=== PATIENT | male | born 1950 | race Hispanic/Latino ===

== ENCOUNTER 2018-05-13 20:08 | Emergency (ER) | payer MEDICARE ==
[2018-05-13 20:21] VITALS: BP 145/54
[2018-05-13] MEDS ORDERED: BANOPHEN PO ONE (20:41)
[2018-05-14] MEDS ORDERED: DELTASONE PO ONE (00:18)
[2018-05-14] MEDS ORDERED: KENALOG TP ONE (00:18)
[2018-05-14] MEDS ORDERED: MOTRIN PO ONE (00:22)
--- NOTE | 2018-05-14 00:22 | Emergency Department Report ---
ED Animal Bite HPI - General Chief Complaint: Animal Bite Stated Complaint: BEE STING Time Seen by Provider: 05/14/18 00:17 Source: patient Mode of arrival: Ambulatory Limitations: No Limitations - History of Present Illness Initial Comments: 67-year-old male comes in with multiple stating and redness area. Patient reports that he was mowing his lawn today and was attacked by yellow jackets. Patient denies any trouble swallowing no trouble breathing no wheezing no chest pain no nausea no vomiting. Patient complains of swelling of his feet that is itchy On his back, placed on his left gluteal, right arm. He reports that he has a history of diabetes., Hypertension, COPD, arthritis, kidney stones and colon surgery. Patient reports that the Benadryl that was given to him in triage has not helped his itchiness. -: This afternoon Left: Leg, Ankle, Foot, Right: Arm, Leg, Ankle, Foot Animal: other (insect/yellow jackets) Pain Description: constant Severity scale (0 -10): 10 Context: provoked Associated Symptoms: erythema. denies: loss of consciousness, shortness of breath - Related Data Home Medications Medication Instructions Recorded Confirmed Last Taken Alendronate Sodium 70 mg PO QWEEK 09/30/13 05/25/14 05/18/14 Gabapentin [Neurontin] 600 mg PO BID 09/30/13 05/25/14 05/24/14 Lisinopril [Zestril TAB] 20 mg PO QDAY 09/30/13 05/25/14 05/24/14 Megestrol [Megace] 40 mg PO DAILY 09/30/13 05/25/14 05/24/14 Omeprazole [PriLOSEC] 40 mg PO DAILY 09/30/13 05/25/14 05/24/14 Tamsulosin [Flomax] 0.4 mg PO DAILY 09/30/13 05/25/14 05/24/14 glipiZIDE [glipiZIDE ER] 5 mg PO QAM 09/30/13 05/25/14 05/24/14 Pentosan (Nf) [Elmiron (Nf)] 100 mg PO BID 05/25/14 05/25/14 05/24/14 Solifenacin Succinate [Vesicare] 5 mg PO DAILY 05/25/14 05/25/14 05/24/14 Previous Rx's Medication Instructions Recorded Last Taken Type Cyclobenzaprine [Flexeril 10 MG 5 mg PO TID PRN #10 tablet 06/29/13 04/20/14 Rx TAB] Hydrocodone Bit/Acetaminophen 1 each PO Q6HR PRN #10 tablet 06/29/13 05/24/14 Rx [Lortab 5-500 Tablet] Ondansetron [Zofran Odt] 4 mg PO Q4-6H PRN #14 tab.rapdis 09/30/13 04/20/14 Rx Pantoprazole [Protonix TAB] 40 mg PO QDAY #10 tablet 09/30/13 05/24/14 Rx Hydroxyzine HCl 25 mg PO Q6H #20 tablet 05/14/18 Unknown Rx Allergies Allergy/AdvReac Type Severity Reaction Status Date / Time acetaminophen [From Percocet] Allergy Itching Verified 05/25/14 07:46 oxycodone HCl [From Percocet] Allergy Itching Verified 05/25/14 07:46 ED Review of Systems ROS: Stated complaint: BEE STING Other details as noted in HPI Comment: All other systems reviewed and negative Constitutional: chills ENT: ear pain Cardiovascular: denies: chest pain, palpitations Endocrine: no symptoms reported Gastrointestinal: denies: abdominal pain, nausea, diarrhea Genitourinary: denies: urgency, dysuria Musculoskeletal: denies: back pain, joint swelling, arthralgia Skin: lesions, change in color, pruritus Psychiatric: anxiety. denies: depression, homicidal thoughts, suicidal thoughts Hematological/Lymphatic: denies: easy bleeding, easy bruising ED Past Medical Hx - Past Medical History Hx Hypertension: Yes Hx Diabetes: Yes Hx GERD: Yes (patient has never had an upper GI endoscopy) Hx Arthritis: Yes Hx Kidney Stones: Yes Hx COPD: Yes - Surgical History Hx Appendectomy: Yes Additional Surgical History: colon surgery - Social History Smoking Status: Current Every Day Smoker Substance Use Type: None - Medications Home Medications: Home Medications Medication Instructions Recorded Confirmed Last Taken Type Cyclobenzaprine [Flexeril 10 MG 5 mg PO TID PRN #10 tablet 06/29/13 05/25/14 Rx TAB] Hydrocodone Bit/Acetaminophen 1 each PO Q6HR PRN #10 tablet 06/29/13 05/25/14 Rx [Lortab 5-500 Tablet] Alendronate Sodium 70 mg PO QWEEK 09/30/13 05/25/14 05/18/14 History Gabapentin [Neurontin] 600 mg PO BID 09/30/13 05/25/14 05/24/14 History Lisinopril [Zestril TAB] 20 mg PO QDAY 09/30/13 05/25/14 05/24/14 History Megestrol [Megace] 40 mg PO DAILY 09/30/13 05/25/14 05/24/14 History Omeprazole [PriLOSEC] 40 mg PO DAILY 09/30/13 05/25/14 05/24/14 History Ondansetron [Zofran Odt] 4 mg PO Q4-6H PRN #14 tab.rapdis 09/30/13 05/25/14 Rx Pantoprazole [Protonix TAB] 40 mg PO QDAY #10 tablet 09/30/13 05/25/14 05/24/14 Rx Tamsulosin [Flomax] 0.4 mg PO DAILY 09/30/13 05/25/14 05/24/14 History glipiZIDE [glipiZIDE ER] 5 mg PO QAM 09/30/13 05/25/14 05/24/14 History Pentosan (Nf) [Elmiron (Nf)] 100 mg PO BID 05/25/14 05/25/14 05/24/14 History Solifenacin Succinate [Vesicare] 5 mg PO DAILY 05/25/14 05/25/14 05/24/14 History Hydroxyzine HCl 25 mg PO Q6H #20 tablet 05/14/18 Unknown Rx ED Physical Exam - General Limitations: No Limitations General appearance: alert, in no apparent distress - Eye Eye exam: Present: EOMI - ENT ENT exam: Present: mucous membranes moist - Respiratory Respiratory exam: Present: normal lung sounds bilaterally. Absent: respiratory distress - Cardiovascular Cardiovascular Exam: Present: regular rate, normal rhythm. Absent: systolic murmur, diastolic murmur, rubs, gallop - Neurological Exam Neurological exam: Present: alert, oriented X3 - Psychiatric Psychiatric exam: Present: normal affect, normal mood - Expanded Skin Exam Expanded Type of lesion: Present: bite/sting Distribution of rash: face (left ear lobe), back, RUE, RLE, LLE Description of rash: Present: swelling, papular ED Course Vital Signs 05/13/18 20:07 Temperature 98.3 F Pulse Rate 71 Respiratory 16 Rate Blood Pressure 145/54 O2 Sat by Pulse 97 Oximetry Critical care attestation.: If time is entered above; I have spent that time in minutes in the direct care of this critically ill patient, excluding procedure time. ED Disposition Clinical Impression: Bee sting Qualifiers: Encounter type: initial encounter Injury intent: accidental or unintentional Qualified Code(s): T63.441A - Toxic effect of venom of bees, accidental ( unintentional), initial encounter Disposition: DC-01 TO HOME OR SELFCARE Is pt being admited?: No Does the pt Need Aspirin: No Condition: Stable Additional Instructions: Take anti-itch medication and knee continues triamcinolone cream to the bites. If her symptoms persist or gets worse please follow up with her primary care provider. Prescriptions: Hydroxyzine HCl 25 mg PO Q6H #20 tablet Referrals: ROSELINE LAWSON MD [Primary Care Provider] - 3-5 Days Forms: Work/School Release Form(ED), Accompanied Note
== END 2018-05-14 01:06 | disposition home or self-care (01) ==
LOC: ED 20:08
DX: T63.441A Toxic effect of venom of bees, accidental (unintentional), initial encounter (principal); I10 Essential (primary) hypertension; E11.9 Type 2 diabetes mellitus without complications; K21.9 Gastro-esophageal reflux disease without esophagitis; M19.90 Unspecified osteoarthritis, unspecified site; F17.200 Nicotine dependence, unspecified, uncomplicated; J44.9 Chronic obstructive pulmonary disease, unspecified; Z88.6 Allergy status to analgesic agent; Y92.89 Other specified places as the place of occurrence of the external cause
CPT/HCPCS: 99282; J7512; Q0163

== ENCOUNTER 2019-06-21 10:28 | Emergency (ER) | payer MEDICARE ==
[2019-06-21 11:14] LABS: Hematocrit 36.7 % (35.5-45.6); Mean Corpuscular HGB Conc 33 % (32-34); Mean Corpuscular Volume 85 fl (84-94); Platelet Count 496 K/mm3 (140-440); Red Cell Distribution Width 16.5 % (13.2-15.2)
[2019-06-21] MEDS ORDERED: TORADOL IV ONE (11:23)
--- NOTE | 2019-06-21 11:29 | Emergency Department Report ---
ED Abdominal Pain HPI - General Chief Complaint: Abdominal Pain Stated Complaint: STOMACH PAIN Time Seen by Provider: 06/21/19 11:07 Source: patient Mode of arrival: Ambulatory Limitations: No Limitations - History of Present Illness Initial Comments: 68-year-old male with history of diabetes, colon cancer status post resection and currently in remission, presents to ED with complaint of left lower quadrant abdominal pain 3 weeks. Patient denies nausea, vomiting, diarrhea, constipation, blood in stool. Patient denies any fever, dysuria or urinary frequency. MD Complaint: abdominal pain -: week(s) (3) Location: [facility] Radiation: none Migration to: no migration Severity: moderate Quality: cramping Consistency: intermittent Improves With: nothing Worsens With: nothing Associated Symptoms: denies: nausea, vomiting, diarrhea, fever, chills, dysuria, melena - Related Data Home Medications Medication Instructions Recorded Confirmed Last Taken Alendronate Sodium 70 mg PO QWEEK 09/30/13 05/25/14 05/18/14 Gabapentin [Neurontin] 600 mg PO BID 09/30/13 05/25/14 05/24/14 Lisinopril [Zestril TAB] 20 mg PO QDAY 09/30/13 05/25/14 05/24/14 Megestrol [Megace] 40 mg PO DAILY 09/30/13 05/25/14 05/24/14 Omeprazole [PriLOSEC] 40 mg PO DAILY 09/30/13 05/25/14 05/24/14 Tamsulosin [Flomax] 0.4 mg PO DAILY 09/30/13 05/25/14 05/24/14 glipiZIDE [glipiZIDE ER] 5 mg PO QAM 09/30/13 05/25/14 05/24/14 Pentosan (Nf) [Elmiron (Nf)] 100 mg PO BID 05/25/14 05/25/14 05/24/14 Solifenacin Succinate [Vesicare] 5 mg PO DAILY 05/25/14 05/25/14 05/24/14 Previous Rx's Medication Instructions Recorded Last Taken Type Cyclobenzaprine [Flexeril 10 MG 5 mg PO TID PRN #10 tablet 06/29/13 04/20/14 Rx TAB] Hydrocodone Bit/Acetaminophen 1 each PO Q6HR PRN #10 tablet 06/29/13 05/24/14 Rx [Lortab 5-500 Tablet] Ondansetron [Zofran Odt] 4 mg PO Q4-6H PRN #14 tab.rapdis 09/30/13 04/20/14 Rx Pantoprazole [Protonix TAB] 40 mg PO QDAY #10 tablet 09/30/13 05/24/14 Rx hydrOXYzine HCl [Hydroxyzine HCl] 25 mg PO Q6H #20 tablet 05/14/18 Unknown Rx Dicyclomine [Bentyl] 20 mg PO QID PRN #20 tablet 06/21/19 Unknown Rx traMADol [Ultram] 50 mg PO Q6HR PRN #7 tablet 06/21/19 Unknown Rx Allergies Allergy/AdvReac Type Severity Reaction Status Date / Time acetaminophen [From Percocet] Allergy Itching Verified 05/25/14 07:46 oxycodone HCl [From Percocet] Allergy Itching Verified 05/25/14 07:46 ED Review of Systems ROS: Stated complaint: STOMACH PAIN Other details as noted in HPI Comment: All other systems reviewed and negative Constitutional: denies: chills, fever Gastrointestinal: abdominal pain. denies: nausea, vomiting, diarrhea, hem atemesis, melena, hematochezia Genitourinary: denies: dysuria, frequency, hematuria ED Past Medical Hx - Past Medical History Previous Medical History?: Yes Hx Hypertension: Yes Hx Diabetes: Yes Hx GERD: Yes (patient has never had an upper GI endoscopy) Hx Arthritis: Yes Hx Kidney Stones: Yes Hx COPD: Yes - Surgical History Past Surgical History?: Yes Hx Appendectomy: Yes Additional Surgical History: colon resection - Social History Smoking Status: Former Smoker Substance Use Type: None - Medications Home Medications: Home Medications Medication Instructions Recorded Confirmed Last Taken Type Cyclobenzaprine [Flexeril 10 MG 5 mg PO TID PRN #10 tablet 06/29/13 05/25/14 04/20/14 Rx TAB] Hydrocodone Bit/Acetaminophen 1 each PO Q6HR PRN #10 tablet 06/29/13 05/25/14 05/24/14 Rx [Lortab 5-500 Tablet] Alendronate Sodium 70 mg PO QWEEK 09/30/13 05/25/14 05/18/14 History Gabapentin [Neurontin] 600 mg PO BID 09/30/13 05/25/14 05/24/14 History Lisinopril [Zestril TAB] 20 mg PO QDAY 09/30/13 05/25/14 05/24/14 History Megestrol [Megace] 40 mg PO DAILY 09/30/13 05/25/14 05/24/14 History Omeprazole [PriLOSEC] 40 mg PO DAILY 09/30/13 05/25/14 05/24/14 History Ondansetron [Zofran Odt] 4 mg PO Q4-6H PRN #14 tab.rapdis 09/30/13 05/25/14 04/20/14 Rx Pantoprazole [Protonix TAB] 40 mg PO QDAY #10 tablet 09/30/13 05/25/14 05/24/14 Rx Tamsulosin [Flomax] 0.4 mg PO DAILY 09/30/13 05/25/14 05/24/14 History glipiZIDE [glipiZIDE ER] 5 mg PO QAM 09/30/13 05/25/14 05/24/14 History Pentosan (Nf) [Elmiron (Nf)] 100 mg PO BID 05/25/14 05/25/14 05/24/14 History Solifenacin Succinate [Vesicare] 5 mg PO DAILY 05/25/14 05/25/14 05/24/14 History hydrOXYzine HCl [Hydroxyzine HCl] 25 mg PO Q6H #20 tablet 05/14/18 Unknown Rx Dicyclomine [Bentyl] 20 mg PO QID PRN #20 tablet 06/21/19 Unknown Rx traMADol [Ultram] 50 mg PO Q6HR PRN #7 tablet 06/21/19 Unknown Rx ED Physical Exam - General Limitations: No Limitations General appearance: alert, in no apparent distress - Head Head exam: Present: atraumatic, normocephalic - Eye Eye exam: Present: normal appearance - ENT ENT exam: Present: mucous membranes moist - Neck Neck exam: Present: normal inspection - Respiratory Respiratory exam: Present: normal lung sounds bilaterally. Absent: respiratory distress - Cardiovascular Cardiovascular Exam: Present: regular rate, normal rhythm - GI/Abdominal GI/Abdominal exam: Present: soft, tenderness (mild LLQ tenderness). Absent: distended - Extremities Exam Extremities exam: Present: normal inspection - Neurological Exam Neurological exam: Present: alert, oriented X3 - Psychiatric Psychiatric exam: Present: normal affect, normal mood - Skin Skin exam: Present: warm, dry, intact, normal color ED Course Vital Signs 06/21/19 06/21/19 06/21/19 10:49 11:56 12:12 Temperature 97.6 F Pulse Rate 96 H Respiratory 22 18 Rate Blood Pressure 175/95 O2 Sat by Pulse 95 92 Oximetry 06/21/19 06/21/19 06/21/19 12:13 12:15 14:27 Temperature Pulse Rate 98 H Respiratory 18 Rate Blood Pressure 162/71 163/71 O2 Sat by Pulse 93 93 Oximetry - Consultations Consultation #1: 06/21/19 14:20 Spoke w/ Dr Lazar. States not clinically a small bowel obstruction since pt tolerating PO, no vomiting, having regular bowel movements. ED Medical Decision Making - Lab Data Result diagrams: 06/21/19 11:04 06/21/19 11:04 - Radiology Data Radiology results: report reviewed, image reviewed - Medical Decision Making - abdominal pain likely due to recurrent colonic neoplasm - CT shows has likely spread to liver and lungs - CT reports suggests SBO, however clinically, pt's symptoms are not consistent w/ an SBO - advised outpt GI and oncology f/u - return precautions given - Differential Diagnosis diverticulitis, malignancy, UTI Critical care attestation.: If time is entered above; I have spent that time in minutes in the direct care of this critically ill patient, excluding procedure time. ED Disposition Clinical Impression: Abdominal pain, Mass of colon, Liver mass, Pulmonary nodules Disposition: TO HOME OR SELFCARE Is pt being admited?: No Condition: Stable Instructions: Colonoscopy (GEN), Abdominal Pain (ED) Prescriptions: Dicyclomine [Bentyl] 20 mg PO QID PRN #20 tablet PRN Reason: abdominal pain traMADol [Ultram] 50 mg PO Q6HR PRN #7 tablet PRN Reason: Pain Referrals: FABIANA SWIFT MD [Primary Care Provider] - 3-5 Days [facility] [Provider Group] - 3-5 Days Time of Disposition: 14:20
[2019-06-21 11:38] LABS: BUN/Creatinine Ratio 23; Blood Urea Nitrogen 23 mg/dL (9-20); Calcium 8.9 mg/dL (8.4-10.2); Hemolysis Index 4
[2019-06-21 11:49] LABS: Alanine Aminotransferase 15 units/L (7-56); Albumin 3.9 g/dL (3.9-5); Bilirubin,Direct 0.3 mg/dL (0-0.2)
[2019-06-21 12:21] LABS: Band Neutrophils # (Manual) 0.7 K/mm3; Basophils % (Manual) 0 % (0.0-1.8); Eosinophils % (Manual) 0 % (0.0-4.3); Monocytes % (Manual) 17 % (0.0-7.3); Total Cells Counted 100
[2019-06-21 12:22] LABS: Anisocytosis 1+
--- NOTE | 2019-06-21 13:08 | Cat Scan Report ---
CT abdomen pelvis w con INDICATION / CLINICAL INFORMATION: LLQ pain. TECHNIQUE: Axial CT imaging of abdomen and pelvis was obtained with IV contrast. Coronal and sagittal reformatte d imaging obtained and reviewed. All CT scans at this location are performed using CT dose reduction for ALARA by means of automated exposure control. COMPARISON: Prior CT abdomen/pelvis, 02/23/2012 FINDINGS: CT abdomen with contrast demonstrates several masses throughout the liver, which are new findings com pared to the 2012 CT scan and therefore certainly worrisome for metastases. The largest mass is in th e left lobe measuring 2.7 cm.. These masses are unchanged from prior exam. Spleen is of normal size. Gallbladder contains one tiny calcified gallstone. No biliary dilatation. There is a simple cyst in t he right kidney. There is a nonobstructing calculus in the right kidney measuring 7 mm. Left kidney i s unremarkable. GI tract is abnormal. There are numerous dilated loops of small bowel containing mostly fluid. In the region of the anastomosis from the hemicolectomy, there is an irregular soft tissue mass measuring a pproximately 4.7 cm in diameter. This is in the transverse colon. This mass appears to be the source of obstruction. The appearance is certainly worrisome for colonic neoplasm. Small amount of free flui d is seen throughout the upper abdomen and within the pelvis. CT pelvis demonstrates no additional significant findings. As stated above there is a small amount of free fluid. Visualized lung bases demonstrate changes consistent with emphysema. Additionally there are several n oncalcified pulmonary nodules throughout both lower lobes some of which are cavitary. The largest pul monary nodule is seen in the left lower lobe measuring 1.4 cm in diameter. No pleural effusion. IMPRESSION: 1. 4.7 cm irregular soft tissue mass involving the transverse colon at site of prior hemicolectomy. T he appearance is worrisome for colonic neoplasm. Colonoscopy may be required for diagnosis. Additiona lly there are new hepatic masses within the right and left lobes of the liver very suggestive for hep atic metastases. Multiple pulmonary nodules are seen throughout both lung bases, some of which are ca vitary, also concerning for pulmonary metastases. 2. Diffuse mild dilatation of the small bowel concerning for mild small bowel obstruction. Small amou nt of free fluid is seen within the upper abdomen and pelvis. 3. Cholelithiasis. 4. Right nephrolithiasis without obstruction. Signer Name: Macarena Holguin MD Signed: 06/21/2019 1:04 PM Workstation Name: [id number]
[2019-06-21 14:33] VITALS: BP 163/71
== END 2019-06-21 14:33 | disposition home or self-care (01) ==
LOC: ED 10:28
DX: R91.1 Solitary pulmonary nodule (principal); R19.09 Other intra-abdominal and pelvic swelling, mass and lump; I10 Essential (primary) hypertension; E11.9 Type 2 diabetes mellitus without complications; K21.9 Gastro-esophageal reflux disease without esophagitis; M19.90 Unspecified osteoarthritis, unspecified site; J44.9 Chronic obstructive pulmonary disease, unspecified; Z87.891 Personal history of nicotine dependence; Z88.6 Allergy status to analgesic agent; Z88.1 Allergy status to other antibiotic agents; Z79.899 Other long term (current) drug therapy; Z87.442 Personal history of urinary calculi
CPT/HCPCS: 36415; 74177; 80048; 80076; 85007; 85025; 96374; 99284; J1885; Q9967

== ENCOUNTER 2019-07-09 08:12 | Day surgery (SDC) | payer MEDICARE ==
[2019-07-09 09:16] LABS: Basophils # (Auto) 0.1 K/mm3 (0.0-0.1); Basophils % (Auto) 0.4 % (0.0-1.8); Eosinophils # (Auto) 0.2 K/mm3 (0.0-0.4); Eosinophils % (Auto) 1.4 % (0.0-4.3); Hematocrit 34.9 % (35.5-45.6); Hemoglobin 11.4 gm/dl (11.8-15.2); Lymphocytes # (Auto) 3.7 K/mm3 (1.2-5.4); Lymphocytes % (Auto) 28.2 % (13.4-35.0); Mean Corpuscular HGB Conc 33 % (32-34); Mean Corpuscular Volume 86 fl (84-94); Monocytes % (Auto) 7.2 % (0.0-7.3); Platelet Count 436 K/mm3 (140-440); Red Blood Count 4.09 M/mm3 (3.65-5.03); Red Cell Distribution Width 16.8 % (13.2-15.2)
[2019-07-09 09:31] LABS: INR 1.06 (0.87-1.13)
[2019-07-09 09:32] LABS: Partial Thromboplastin Time 24.8 Sec. (24.2-36.6)
[2019-07-09] MEDS ORDERED: DILAUDID IV ONE (09:34)
[2019-07-09] MEDS ORDERED: DILAUDID ONE (09:42)
[2019-07-09] MEDS ORDERED: ZOFRAN IV ONE (10:00)
--- NOTE | 2019-07-09 12:25 | Cat Scan Report ---
CT-GUIDED LIVER BIOPSY INDICATION : Multiple liver masses. History of colon cancer 10 years ago. COMPARISON: None PROCEDURE: The risks (including but not limited to bleeding and infection) and benefits were explain ed to the patient and informed consent was obtained. All CT scans at this location are performed usi ng CT dose reduction for ALARA by means of automated exposure control. A time out procedure was performed. The procedure site was prepped and draped in the usual sterile f ashion and lidocaine was used for local anesthesia. Anxiolysis was accomplished with 2 mg of Dilaudid and 2 mg of Zofran intravenously. Using CT guidance, a 17-gauge introducer needle was advanced to the leading edge of a 2.5 cm hypodens e mass in the anterior right hepatic lobe. 3 separate 1.2 cm 18-gauge core biopsies were obtained. Tang thkingston was present to handle the samples and deemed the samples adequate. Follow-up scan demonstrate s no evidence for hemorrhage. The patient tolerated the procedure well with no complications. IMPRESSION: Successful CT-guided biopsy of a 2.5 cm right hepatic lobe mass. Signer Name: Hugh Mccord Jr, MD Signed: 07/09/2019 12:20 PM Workstation Name: [id number]
[2019-07-09 12:49] VITALS: BP 146/111
== END 2019-07-09 13:00 | disposition home or self-care (01) ==
LOC: CATHLABREC 08:12 → EDSTATUS 08:30 → CATHLABREC 13:00
PROVIDERS: ATTEND Internal Medicine Hematology & Oncology
DX: C78.7 Secondary malignant neoplasm of liver and intrahepatic bile duct (principal); C18.0 Malignant neoplasm of cecum; D64.9 Anemia, unspecified; Z88.8 Allergy status to other drugs, medicaments and biological substances; Z79.899 Other long term (current) drug therapy; F17.210 Nicotine dependence, cigarettes, uncomplicated; Z98.890 Other specified postprocedural states; G62.9 Polyneuropathy, unspecified; I10 Essential (primary) hypertension; J43.9 Emphysema, unspecified; K21.9 Gastro-esophageal reflux disease without esophagitis; Z87.442 Personal history of urinary calculi; M19.90 Unspecified osteoarthritis, unspecified site; F41.9 Anxiety disorder, unspecified
CPT/HCPCS: 36415; 47000; 77012; 85025; 85610; 85730; 88172; 88173; 88307; 88341; 88342; J1170; J2405

== ENCOUNTER 2019-11-30 13:14 | Emergency (ER) | payer MEDICARE ==
[2019-11-30] MEDS ORDERED: ONDANSETRON 4 MG/2 ML INJ IV ONE (15:07)
[2019-11-30] MEDS ORDERED: HYDROmorphone 1 MG/1 ML INJ IV ONE ×2 (15:07→16:46)
--- NOTE | 2019-11-30 15:25 | Emergency Department Report ---
HPI - General Chief Complaint: Pain General Time Seen by Provider: 11/30/19 15:05 - HPI HPI: Room 22 The patient is a 69-year-old male presenting with a chief complaint of abdominal pain and suicidal ideation. The patient has a history of stage IV metastatic colon CA and has stopped seeking treatment approximately one month ago. Family is actively trying to get the patient into hospice. The patient continues to have abdominal pain and family states the patient was so distressed about his abdominal pain he threatened to kill himself. Family states the patient was looking forceful R arm to shoot himself in the head prior to arrival. Family wa s able to obtain the gun and hydrated at a different house. The patient states she's felt suicidal for 1 month. The patient's abdominal pain that he presents with today is not new and states it has been there throughout his cancer diagnosis Location: [See above] Duration: [See above] Quality: [See above] Severity: [See above] Timing: [See above] Context: [See above] Modifying factors: [See above] Associated signs and symptoms: [see above] ED Past Medical Hx - Past Medical History Previous Medical History?: Yes Hx Hypertension: Yes Hx Diabetes: Yes Hx GERD: Yes (patient has never had an upper GI endoscopy) Hx of Cancer: Yes (colon) Hx Arthritis: Yes Hx Kidney Stones: Yes Hx COPD: Yes - Surgical History Past Surgical History?: Yes Hx Appendectomy: Yes Additional Surgical History: colon resection - Family History Family history: no significant - Social History Smoking Status: Light Tobacco Smoker Substance Use Type: Alcohol, Prescribed - Medications Home Medications: Home Medications Medication Instructions Recorded Confirmed Last Taken Type Cyclobenzaprine [Flexeril 10 MG 5 mg PO TID PRN #10 tablet 06/29/13 07/09/19 07/08/19 Rx TAB] 5 mg Hydrocodone Bit/Acetaminophen 1 each PO Q6HR PRN #10 tablet 06/29/13 07/09/19 05/24/14 Rx [Lortab 5-500 Tablet] Alendronate Sodium 70 mg PO QWEEK 09/30/13 07/09/19 05/18/14 History Gabapentin [Neurontin] 600 mg PO BID 09/30/13 07/09/19 07/08/19 History 600 mg Megestrol 40 mg PO DAILY 09/30/13 07/09/19 07/08/19 History 40 mg Omeprazole [PriLOSEC] 40 mg PO DAILY 09/30/13 07/09/19 07/08/19 History 40 mg Ondansetron [Zofran Odt] 4 mg PO Q4-6H PRN #14 tab.rapdis 09/30/13 07/09/19 04/20/14 Rx Pantoprazole [Protonix TAB] 40 mg PO QDAY #10 tablet 09/30/13 07/09/19 07/08/19 Rx 40 mg Tamsulosin [Flomax] 0.4 mg PO DAILY 09/30/13 07/09/19 07/08/19 History 0.4mg glipiZIDE [glipiZIDE ER] 5 mg PO QAM 09/30/13 07/09/19 07/09/19 History 5 mg lisinopriL [Zestril TAB] 20 mg PO QDAY 09/30/13 07/09/19 07/08/19 History 20 mg Pentosan (Nf) [Elmiron (Nf)] 100 mg PO BID 05/25/14 07/09/19 07/08/19 History 100 mg Solifenacin Succinate [Vesicare] 5 mg PO DAILY 05/25/14 07/09/19 07/08/19 History 5 mg hydrOXYzine HCL [Hydroxyzine HCl] 25 mg PO Q6H #20 tablet 05/14/18 07/09/19 Rx 25 mg Dicyclomine [Bentyl] 20 mg PO QID PRN #20 tablet 06/21/19 07/09/19 07/08/19 Rx 20 mg traMADoL [Ultram] 50 mg PO Q6HR PRN #7 tablet 06/21/19 07/09/19 07/09/19 Rx 50 mg fentaNYL [Duragesic] 12 mcg TD Q72H #5 patch 11/30/19 Unknown Rx ED Review of Systems ROS: Stated complaint: STAGE 4 COLON CANCER Other details as noted in HPI Constitutional: no symptoms reported Eyes: denies: eye pain ENT: denies: throat pain Respiratory: no symptoms reported Gastrointestinal: abdominal pain Physical Exam - Physical Exam Vital Signs: Vital Signs 11/30/19 13:23 Temperature 97.4 F L Pulse Rate 86 Respiratory 20 Rate Blood Pressure 136/64 O2 Sat by Pulse 94 Oximetry Physical Exam: GENERAL: The patient is well-developed well-nourished male lying on stretcher not appearing to be in acute distress. [] HEENT: Normocephalic. Atraumatic. Extraocular motions are intact. Patient has moist mucous membranes. NECK: Supple. Trachea midline CHEST/LUNGS: Clear to auscultation. There is no respiratory distress noted. HEART/CARDIOVASCULAR: Regular. There is no tachycardia. There is no gallop rub or murmur. ABDOMEN: Abdomen is soft, without rebound or guarding. Patient has normal bowel sounds. There is no abdominal distention. Multiple palpable subcutaneous nodules mid abdominal wall SKIN: There is no rash. There is no edema. There is no diaphoresis. NEURO: The patient is awake, alert, and oriented. The patient is cooperative. The patient has normal speech MUSCULOSKELETAL: There is no evidence of acute injury. ED Course Vital Signs 11/30/19 13:23 Temperature 97.4 F L Pulse Rate 86 Respiratory 20 Rate Blood Pressure 136/64 O2 Sat by Pulse 94 Oximetry - Reevaluation(s) Reevaluation #1: 11/30/19 17:25 Patient resting comfortably ED Medical Decision Making - Lab Data Result diagrams: 11/30/19 15:33 11/30/19 15:33 - Differential Diagnosis metastatic colon CA, suicidal ideation Critical care attestation.: If time is entered above; I have spent that time in minutes in the direct care of this critically ill patient, excluding procedure time. ED Disposition Clinical Impression: Colon cancer, Abdominal pain, Suicidal ideation Disposition: DC/TX-65 PSY HOSP/PSY UNIT Is pt being admited?: No Does the pt Need Aspirin: No Condition: Stable Prescriptions: fentaNYL [Duragesic] 12 mcg TD Q72H #5 patch
[2019-11-30 15:51] LABS: Basophils % (Auto) 0.5 % (0.0-1.8); Eosinophils # (Auto) 0.1 K/mm3 (0.0-0.4); Eosinophils % (Auto) 0.8 % (0.0-4.3); Hematocrit 32.1 % (35.5-45.6); Hemoglobin 10.8 gm/dl (11.8-15.2); Lymphocytes # (Auto) 1.5 K/mm3 (1.2-5.4); Lymphocytes % (Auto) 22.6 % (13.4-35.0); Mean Corpuscular HGB Conc 34 % (32-34); Mean Corpuscular Volume 92 fl (84-94); Monocytes # (Auto) 0.6 K/mm3 (0.0-0.8); Monocytes % (Auto) 8.7 % (0.0-7.3); Platelet Count 280 K/mm3 (140-440); Red Cell Distribution Width 17.4 % (13.2-15.2)
[2019-11-30 16:05] LABS: Alanine Aminotransferase 10 units/L (7-56); Albumin 3.5 g/dL (3.9-5); BUN/Creatinine Ratio 17; Blood Urea Nitrogen 10 mg/dL (9-20); Calcium 9.1 mg/dL (8.4-10.2); Hemolysis Index 0
[2019-11-30] MEDS ORDERED: POTASSIUM CHLORIDE ER 20 MEQ TAB PO ONE (16:11)
[2019-11-30] MEDS ORDERED: diphenhydrAMINE 50 MG/ML VIAL IV ONE (16:46)
[2019-11-30] MEDS ORDERED: ZIPRASIDONE MESYLATE 20 MG VIAL IM ONE (18:07)
[2019-11-30] MEDS ORDERED: WATER FOR INJ Sterile (PF) 10 ML ONE (18:13)
[2019-12-01 02:35] LABS: Bilirubin,Urine NEG (Negative); Blood,Urine NEG (Negative); Color,Urine Yellow (Yellow); Mucus,Urine FEW /HPF; Protein,Urine <15 mg/dL mg/dL (Negative)
[2019-12-01 02:42] LABS: Amphetamine Screen,Urine PRESUMPTIVE NEGATIVE; Benzodiazepines Screen,Urine PRESUMPTIVE NEGATIVE; Cannabinoid Screen,Urine PRESUMPTIVE NEGATIVE; Cocaine Screen,Urine PRESUMPTIVE NEGATIVE; Methadone Screen,Urine PRESUMPTIVE NEGATIVE; Opiate Screen,Urine PRESUMPTIVE NEGATIVE
[2019-12-01 07:47] VITALS: BP 144/69
== END 2019-12-01 11:55 ==
LOC: ED 13:14
DX: C18.9 Malignant neoplasm of colon, unspecified (principal); R45.851 Suicidal ideations; I10 Essential (primary) hypertension; E11.9 Type 2 diabetes mellitus without complications; K21.9 Gastro-esophageal reflux disease without esophagitis; M19.90 Unspecified osteoarthritis, unspecified site; N20.0 Calculus of kidney; J44.9 Chronic obstructive pulmonary disease, unspecified; F17.200 Nicotine dependence, unspecified, uncomplicated; Z90.49 Acquired absence of other specified parts of digestive tract; Z79.899 Other long term (current) drug therapy; Z88.8 Allergy status to other drugs, medicaments and biological substances
CPT/HCPCS: 36415; 80053; 80307; 81001; 85025; 96372; 96374; 96375; 96376; 99284; J1170; J1200; J2405; J3486; 80320; G0480